=== PATIENT | male | born 1945 | race Caucasian/White ===

== ENCOUNTER 2016-08-13 14:53 | Emergency (ER) | payer OTHER ==
[2016-08-13 16:14] LABS: BASOPHIL 0.4 % (0-2); EOSINOPHIL 2.4 % (0-7); HCT 43.2 % (42.0-52.0); HGB 15.3 g/dl (13.2-18.0); LYMPHOCYTE 26.4 % (15-48); MCH 33.8 pg (25.0-31.0); MCHC 35.4 g/dL (32.0-36.0); MCV 95.4 fL (78.0-100.0); MONOCYTE 9.4 % (0-12); NEUTROPHIL 61.4 % (41-80); PLT 181 K/uL (150-400); RBC 4.53 M/uL (4.70-6.00); WBC 5.4 K/uL (4.0-10.5)
[2016-08-13 16:18] LABS: CLARITY CLEAR (CLEAR); COLOR YELLOW (YELLOW)
[2016-08-13 16:19] LABS: BILIRUBIN NEGATIVE (NEGATIVE); BLOOD NEGATIVE Ery/uL (NEGATIVE); GLUCOSE (U) 3+ mg/dL (NORMAL); KETONE (U) NEGATIVE (NEGATIVE); LEUKOCYTES NEGATIVE Leu/uL (NEGATIVE); NITRITE NEGATIVE (NEGATIVE); PROTEIN TRACE (LOW) mg/dL (NEGATIVE); UROBILINOGEN 0.2 mg/dL (0.2-1.0)
[2016-08-13 16:30] LABS: ALBUMIN 4.1 g/dL (3.4-4.8); BILIRUBIN - TOTAL 0.5 mg/dL (0.1-1.0); CREATININE 1.5 mg/dL (0.7-1.2); GLOBULIN (CALCULATION) 2.6 g/dL (2.2-4.2); POTASSIUM 4.9 mmol/L (3.5-5.1); TOTAL PROTEIN 6.7 g/dL (6.4-8.3)
[2016-08-13 16:45] LABS: URINARY WBC RARE
== END 2016-08-13 19:14 | disposition home or self-care (01) ==
LOC: FER 14:53
PROVIDERS: Emergency Medicine
DX: K57.30 Diverticulosis of large intestine without perforation or abscess without bleeding (principal); N40.0 Benign prostatic hyperplasia without lower urinary tract symptoms; E10.9 Type 1 diabetes mellitus without complications
CPT/HCPCS: 36415; 80053; 81001; 85025; 87045; 87046; 87339; C9113